=== PATIENT | male | born 1945 | race Caucasian/White ===

== ENCOUNTER 2017-08-24 18:47 | Emergency (ER) | payer OTHER ==
[~2017-08-24] VITALS: Ht 182.9 cm; Wt 52.7 kg
[2017-08-24] MEDS ORDERED: FLO0.4C PO (19:18)
[2017-08-24] MEDS ORDERED: TROS20TA4 PO (19:18)
[2017-08-24] MEDS ORDERED: CEPH-572 PO (20:06)
[2017-08-24] MEDS ORDERED: PHEN-716 PO (20:06)
[2017-08-24 20:22] VITALS: BP 143/88
[2017-08-24 20:24] LABS: CLARITY,URINE CLOUDY (Clear); COLOR,URINE BROWN (Yellow); GLUCOSE, URINE NEGATIVE (Neg); KETONES,URINE NEGATIVE (Neg); LEUKOCYTE ESTERASE ,URINE MODERATE (Neg); NITRITES, URINE NEGATIVE (Neg); OCCULT BLOOD,URINE LARGE (Neg); PH,URINE 7.5 (4.8-8.0); PROTEIN,URINE 100 mg/dl (Neg); UROBILINOGEN,URINE 0.2 E.U/dL (0.2-1.0)
[2017-08-24 20:41] LABS: UA COLLECTION TYPE FOLEY CATH
[2017-08-24 20:42] LABS: SQUAMOUS EPITHELIAL CELL,UR NONE SEEN /LPF (FEW)
[2017-08-24 20:43] LABS: BACTERIA,URINE 1+ /HPF (Neg); RBC,URINE TNTC /HPF (0-2)
== END 2017-08-24 20:25 | disposition home or self-care (01) ==
LOC: ER 18:48
DX: N39.0 Urinary tract infection, site not specified (principal); Z93.6 Other artificial openings of urinary tract status; Z79.899 Other long term (current) drug therapy
CPT/HCPCS: 51702; 81001; 87088; 99285